=== PATIENT | male | born 2000 | race Two or more races ===

== ENCOUNTER → 2022-01-29 08:46 | Outpatient (CLI) | payer OTHER | END | disposition home or self-care (01) | LOC: LAB 08:46 | PROVIDERS: ATTEND General Practice | DX: E11.9 Type 2 diabetes mellitus without complications (principal); E78.2 Mixed hyperlipidemia; E03.8 Other specified hypothyroidism; D50.9 Iron deficiency anemia, unspecified; N39.0 Urinary tract infection, site not specified ==